=== PATIENT | female | born 1990 | race Hispanic/Latino ===

== ENCOUNTER 2018-04-01 13:37 | Emergency (ER) | payer OTHER ==
[~2018-04-01] VITALS: Ht 154.9 cm; Wt 72.2 kg
[2018-04-01 16:01] LABS: HEMATOCRIT 37.9 % (36.0-46.0); HEMOGLOBIN 13.2 G/DL (11.9-15.5); MCH 31.7 PG (29.0-34.0); MCHC 34.8 G/DL (30.0-36.0); MCV 91.1 FL (83-99); PLATELET COUNT 224 K/uL (156-360); RBC DIS.WIDTH-CV 11.6 % (11.8-14.6); RBC DIS.WIDTH-SD 38.8 % (39-53); RED BLOOD COUNT 4.16 M/uL (3.80-5.20); WHITE BLOOD COUNT 7.3 K/uL (4.1-10.2)
[2018-04-01 16:14] LABS: CHLORIDE 106 mEq/L (99-109); POTASSIUM 3.8 mEq/L (3.7-5.4); SODIUM 139 mEq/L (136-147)
[2018-04-01 16:16] LABS: GLUCOSE 98 mg/dL (70-99)
[2018-04-01 16:20] LABS: CREATININE 0.7 mg/dL (0.6-1.3); GFR ESTIMATE (CALCULATED) > 59 mL/min/
[2018-04-01 16:21] LABS: UREA NITROGEN (BUN) 8 mg/dL (9-23)
[2018-04-01] MEDS ORDERED: CETRAXAL1 EACH RIGHT EAR (19:38)
[2018-04-01] MEDS ORDERED: KEFLEX500 MG PO (19:38)
[2018-04-01 19:53] VITALS: BP 125/81
== END 2018-04-01 19:56 | disposition home or self-care (01) ==
LOC: EME 13:37
PROVIDERS: Nurse Practitioner Family
DX: H60.91 Unspecified otitis externa, right ear (principal); L03.211 Cellulitis of face
CPT/HCPCS: 70487; 80048; 83605; 85027; 87040; 99281; 99284